=== PATIENT | male | born 1985 | race Caucasian/White ===

== ENCOUNTER 2018-10-29 15:24 | Emergency (ER) | payer SELFPAY ==
[~2018-10-29] VITALS: Ht 165.1 cm; Wt 81.2 kg
[2018-10-29 15:43] VITALS: Ht 165.1 cm; Wt 81.2 kg
--- NOTE | 2018-10-29 16:46 | ERD ---
ER Documentation Chief Complaint Chief Complaint [address], headache x5 yrs HPI 33-year-old male, presents the emergency department, complaining of global headache and fatigue for 5 years. The patient denies fever, no chills, no chest pain, no shortness of breath. The patient refers using marijuana every day, he is currently homeless. The patient denies any personal medical history, no history of surgeries, no allergies. No distal weakness, numbness or tingling, reports of blurred vision or dizziness, no nausea or vomiting. ROS All systems reviewed and are negative except as per history of present illness. Medications Home Meds Active Scripts Ibuprofen* (Motrin*) 400 Mg Tab, 400 MG PO Q6H PRN for PAIN AND OR ELEVATED TEMP, #30 TAB Prov:BENOIT HUYNH MD 10/29/18 Cephalexin* (Keflex*) 500 Mg Capsule, 500 MG PO QID for 7 Days, CAP Prov:BENOIT HUYNH MD 10/29/18 Allergies Allergies: Coded Allergies: No Known Allergy (Unverified , 10/29/18) PMhx/Soc Medical and Surgical Hx: pt denies Medical Hx, pt denies Surgical Hx Hx Alcohol Use: No Hx Substance Use: No Hx Tobacco Use: No Smoking Status: Never smoker FmHx Family History: No diabetes, No coronary disease Physical Exam Vitals Vital Signs Date Temp Pulse Resp B/P (MAP) Pulse Ox O2 O2 Flow FiO2 Time Delivery Rate 10/29/18 98.1 89 18 145/68 99 Room Air 18:59 (93) 10/29/18 98.2 89 18 156/94 99 15:43 (114) Physical Exam Const: No acute distress Head: Erythematous, mild posterior lesions in the occipital scalp area. Eyes: Normal Conjunctiva ENT: Normal External Ears, Nose and Mouth. Neck: Full range of motion. No meningismus. Resp: Clear to auscultation bilaterally Cardio: Regular rate and rhythm, no murmurs Abd: Soft, non tender, non distended. Normal bowel sounds Skin: No petechiae or rashes Back: No midline or flank tenderness Ext: No cyanosis, or edema Neur: Awake and alert Psych: Normal Mood and Affect Result Diagram: 10/29/18 1653 10/29/18 1653 Results 24 hrs Laboratory Tests Test 10/29/18 16:53 White Blood Count 9.5 10^3/ul Red Blood Count 5.49 10^6/ul Hemoglobin 17.0 g/dl Hematocrit 47.6 % Mean Corpuscular Volume 86.7 fl Mean Corpuscular Hemoglobin 31.0 pg Mean Corpuscular Hemoglobin Concent 35.7 g/dl Red Cell Distribution Width 12.5 % Platelet Count 259 10^3/UL Mean Platelet Volume 10.3 fl Immature Granulocytes % 0.300 % Neutrophils % 70.3 % Lymphocytes % 19.7 % Monocytes % 7.7 % Eosinophils % 1.6 % Basophils % 0.4 % Nucleated Red Blood Cells % 0.0 /100WBC Immature Granulocytes # 0.030 10^3/ul Neutrophils # 6.6 10^3/ul Lymphocytes # 1.9 10^3/ul Monocytes # 0.7 10^3/ul Eosinophils # 0.2 10^3/ul Basophils # 0.0 10^3/ul Nucleated Red Blood Cells # 0.0 10^3/ul Urine Color YELLOW Urine Clarity CLOUDY Urine pH 6.0 Urine Specific [place] 1.020 Urine Ketones TRACE mg/dL Urine Nitrite NEGATIVE mg/dL Urine Bilirubin NEGATIVE mg/dL Urine Urobilinogen NEGATIVE mg/dL Urine Leukocyte Esterase NEGATIVE Vanessa/ul Urine Microscopic RBC 2 /HPF Urine Microscopic WBC 3 /HPF Urine Amorphous Crystals MANY /HPF Urine Bacteria FEW /HPF Urine Hemoglobin NEGATIVE mg/dL Urine Glucose NEGATIVE mg/dL Urine Total Protein NEGATIVE mg/dl Sodium Level 142 mmol/L Potassium Level 3.8 mmol/L Chloride Level 103 mmol/L Carbon Dioxide Level 27 mmol/L Anion Gap 12 Blood Urea Nitrogen 12 mg/dl Creatinine 0.80 mg/dl Est Glomerular Filtrat Rate mL/min > 60 mL/min Glucose Level 98 mg/dl Calcium Level 9.5 mg/dl Procedures/MDM Vital signs stable, Physical exam unremarkable, neurovascular exam intact. Differential diagnosis include but not limited to: Classical migraine, sinusitis, visual corrective problems, side effects of medications, dehydration, electrolyte imbalance, endocrine/autoimmune medical condition, stress, anxiety, tension headache. Low suspicion for meningitis, SPECIAL OFFICER tumor, cerebrovascular event. Physical examination and clinical presentation consistent most likely with tension headache and folliculitis in the scalp. During the ED course the patient remained stable, no new complaints. Results and clinical impression discussed with patient who agrees with management. The patient is stable to be treated outpatient and will be disc harged home, some side effects of prescribed medications (headache, rash, nausea, vomiting, diarrhea, drowsiness, habituation, bleeding, hypertension, interactions with other medications) were reviewed. Follow up with the primary care provider in the next 48h has been recommended. If symptoms persist, worsen or new symptoms develop, then patient should return to the ED immediately. Instructions explained and given directly by me to the patient with acknowledgment and demonstrated understanding. Disclaimer: Inadvertent spelling and grammatical errors are likely due to EHR/dictation software use and do not reflect on the overall quality of patient care. Also, please note that the electronic time recorded on this note does not necessarily reflect the actual time of the patient encounter. Departure Diagnosis: Primary Impression: Headache Additional Impression: Infectious folliculitis Condition: Stable Patient Instructions: Self-Care for Headaches Additional Instructions: Muchas macy por [facility] para sanchez servicio. Esperamos que en sanchez visita a la pooja de emergencia sanchez problema medico haya sido solucionado y que se sienta mucho mejor. Para estar seguros que sanchez mejoria sigue en proceso, le pedimos el favor de hacer jessica link de seguimiento medico con sanchez doctor primario en los proximos 2-4 turner. Lleve con usted estos documentos y las medicinas recetadas. Si ashvin sintomas empeoran, NO SE ESPERE, por favor regrese a pooja de emergencia INMEDIATAMENTE. En noris que usted no tenga un mdico de atencin primaria: Llame al mdico o clnica comunitaria de referencia que aparece abajo alexei las horas de consultorio para hacer jessica link para que le vean. CLINICAS: [facility] 089 [phone] [address] [phone] [facility] [phone] [address] [facility] [phone] [address] [facility]. [facility] [phone] [id number] [facility] [phone] BENOIT VILLAGRAN MD Oct 29, 2018 16:46
[2018-10-29] MEDS ORDERED: CEPH-443 PO (18:38)
[2018-10-29] MEDS ORDERED: IBUP-1561 PO (18:38)
[2018-10-29 18:59] VITALS: BP 145/68; PULSE 89; RESP 18
== END 2018-10-29 19:29 | disposition home or self-care (01) ==
LOC: FTE 15:24
DX: L73.9 Follicular disorder, unspecified (principal)
CPT/HCPCS: 80048; 81001; 85025; 99283